=== PATIENT | male | born 1945 | race Caucasian/White ===

== ENCOUNTER 2016-05-30 15:50 | Emergency (ER) | payer MEDICARE, OTHER ==
[2016-05-30] MEDS ORDERED: COZAAR50 M1 PO (15:53)
[2016-05-30] MEDS ORDERED: ZETIA10 M1 PO (15:54)
[2016-05-30] MEDS ORDERED: ACTOS30 M1 PO (15:54)
[2016-05-30] MEDS ORDERED: ASPIR-LOW81 M1 PO (16:17)
[2016-05-30 16:51] LABS: URINE BILIRUBIN NEGATIVE (NEG); URINE BLOOD LARGE (NEG); URINE GLUCOSE (UA) NEGATIVE (NEG); URINE KETONE NEGATIVE (NEG); URINE LEUKOCYTE ESTERASE POSITIVE (NEG); URINE NITRITE NEGATIVE (NEG); URINE PROTEIN MODERATE (NEG); URINE SPECIFIC GRAVITY 1.005 (1.003-1.030)
[2016-05-30 16:57] LABS: URINE APPEARANCE CLOUDY; URINE COLOR YELLOW
[2016-05-30 17:03] LABS: URINE AMORPHOUS 2+; URINE BACTERIA 1+; URINE EPITHELIAL CELLS 0-1 /[HPF] (0-10); URINE RBC 50-70 /[HPF] (0-5)
[2016-05-30] MEDS ORDERED: MULTIVITAMINS1 EAC7 PO (17:05)
[2016-05-30] MEDS ORDERED: PROSTATE HEALT1 EAC2 PO (17:07)
[2016-05-30] MEDS ORDERED: GLUCOSAMINE &1 EAC2 PO (17:08)
[2016-05-30] MEDS ORDERED: LUNESTA3 M1 PO (17:08)
[2016-05-30] MEDS ORDERED: CINNAMON500 M1 PO (17:09)
[2016-05-30] MEDS ORDERED: KEFLEX500 M4 PO (17:24)
== END 2016-05-30 17:45 ==
LOC: EDMED 15:50
PROVIDERS: Emergency Medicine
DX: N39.0 Urinary tract infection, site not specified (principal); E11.9 Type 2 diabetes mellitus without complications; I10 Essential (primary) hypertension